=== PATIENT | male | born 1955 | race Caucasian/White ===

== ENCOUNTER 2017-02-28 18:36 | Emergency (ER) | payer OTHER ==
[2017-02-28 19:58] LABS: HEMOGLOBIN 14.4 gm/dl (14.0-17.5); RED BLOOD COUNT 5.01 M/UL (4.20-5.50); WHITE BLOOD COUNT 17.8 K/UL (4.5-11.0)
[2017-02-28 20:21] LABS: BUN/CREATININE RATIO 23 (0-10)
== END 2017-02-28 23:18 ==
LOC: ER1 18:36
PROVIDERS: Radiology Radiation Oncology
DX: S27.0XXA Traumatic pneumothorax, initial encounter (principal); S22.32XA Fracture of one rib, left side, initial encounter for closed fracture; W19.XXXA Unspecified fall, initial encounter; Y92.410 Unspecified street and highway as the place of occurrence of the external cause; Z79.82 Long term (current) use of aspirin; Z79.84 Long term (current) use of oral hypoglycemic drugs; Z79.899 Other long term (current) drug therapy
CPT/HCPCS: 36415; 71010; 71250; 80053; 82550; 82553; 83874; 84484; 85025; 93005; 96374; 96375; 96376; 99285; J2270; J2405; J7030